=== PATIENT | female | born 1995 | race Two or more races ===

== ENCOUNTER 2024-07-22 10:06 | Emergency (ER) | payer SELFPAY ==
[~2024-07-22] VITALS: Ht 154.9 cm; Wt 83.0 kg
[2024-07-22 10:10] VITALS: BP 110/88; PULSE 83; RESP 16; O2SAT 97
--- NOTE | 2024-07-22 11:03 | ED.PDOC ---
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 Patient states the pain started Chief Complaint: Abdominal Pain Time Seen by MD: 10:20 Primary Care Provider: NONE Allergies: Uncoded Allergies: SHRIMP (Allergy, Unknown, 07/22/24) Mode of Arrival: Ambulatory X-Ray, Labs, Meds, VS Vital Signs Date Time Temp Pulse Resp B/P (MAP) Pulse Ox O2 Delivery O2 Flow Rate FiO2 07/22/24 10:10 97.6 83 16 110/88 (95) 97 TIANA LEONARDO MD Jul 22, 2024 11:03
== END 2024-07-22 14:12 | disposition left against medical advice (07) ==
LOC: ER 10:06
DX: R10.9 Unspecified abdominal pain (principal)